=== PATIENT | male | born 1980 | race Caucasian/White ===

== ENCOUNTER 2016-11-28 15:34 | Emergency (ER) | payer OTHER | END 2016-11-28 16:41 | disposition home or self-care (01) | LOC: ER 15:34 | DX: E11.621 Type 2 diabetes mellitus with foot ulcer (principal); I10 Essential (primary) hypertension; M10.9 Gout, unspecified; Z79.4 Long term (current) use of insulin; M54.9 Dorsalgia, unspecified; G89.29 Other chronic pain; E66.9 Obesity, unspecified; G62.9 Polyneuropathy, unspecified; Z79.01 Long term (current) use of anticoagulants; Z79.899 Other long term (current) drug therapy; Z79.84 Long term (current) use of oral hypoglycemic drugs; Z91.040 Latex allergy status ==

== ENCOUNTER 2017-01-16 15:04 | Emergency (ER) | payer OTHER | END 2017-01-16 16:15 | disposition home or self-care (01) | LOC: ER 15:04 | DX: L02.612 Cutaneous abscess of left foot (principal); B95.62 Methicillin resistant Staphylococcus aureus infection as the cause of diseases classified elsewhere; E11.9 Type 2 diabetes mellitus without complications; I10 Essential (primary) hypertension; E78.5 Hyperlipidemia, unspecified; Z79.4 Long term (current) use of insulin; Z79.899 Other long term (current) drug therapy; Z91.040 Latex allergy status ==

== ENCOUNTER 2017-01-31 10:30 | Inpatient (IN) | payer OTHER ==
[~2017-01-31] VITALS: Ht 190.5 cm; Wt 149.7 kg
== END 2017-02-14 15:50 | disposition home or self-care (01) | DRG 540 ==
LOC: SWI 10:30
PROVIDERS: ADMIT Internal Medicine
PROC: 3E0234Z Introduction of Serum, Toxoid and Vaccine into Muscle, Percutaneous Approach (ICD-10-PCS; principal; 2017-02-14)
DX: M86.8X7 Other osteomyelitis, ankle and foot (principal); L03.116 Cellulitis of left lower limb; Z68.41 Body mass index [BMI] 40.0-44.9, adult; I10 Essential (primary) hypertension; Z89.432 Acquired absence of left foot; E66.01 Morbid (severe) obesity due to excess calories; F32.9 Major depressive disorder, single episode, unspecified; G89.29 Other chronic pain; M54.5 Low back pain; M10.9 Gout, unspecified; E11.40 Type 2 diabetes mellitus with diabetic neuropathy, unspecified; Z79.4 Long term (current) use of insulin; E78.5 Hyperlipidemia, unspecified; F41.9 Anxiety disorder, unspecified; Z79.899 Other long term (current) drug therapy; R19.7 Diarrhea, unspecified; B37.9 Candidiasis, unspecified; Z23 Encounter for immunization; B96.89 Other specified bacterial agents as the cause of diseases classified elsewhere
CPT/HCPCS: 87507; J2550

== ENCOUNTER 2017-05-23 13:48 | Inpatient (IN) | payer OTHER ==
[~2017-05-23] VITALS: Ht 190.5 cm; Wt 145.6 kg
--- NOTE | 2017-05-23 16:38 | NUR ---
1220 REPORT RECEIVED FROM FREDRICK TAPIA RN AT [facility] FOR PATIENT TO TRANSFER TO OUR FACILITY TODAY VIA [facility].
== END 2017-06-06 08:25 | disposition home health service (06) | DRG 540 ==
LOC: SWI 13:48
PROVIDERS: ADMIT Internal Medicine
DX: M86.8X7 Other osteomyelitis, ankle and foot (principal); Z68.41 Body mass index [BMI] 40.0-44.9, adult; E11.40 Type 2 diabetes mellitus with diabetic neuropathy, unspecified; I10 Essential (primary) hypertension; E78.5 Hyperlipidemia, unspecified; K21.9 Gastro-esophageal reflux disease without esophagitis; B95.62 Methicillin resistant Staphylococcus aureus infection as the cause of diseases classified elsewhere; B96.4 Proteus (mirabilis) (morganii) as the cause of diseases classified elsewhere; E66.01 Morbid (severe) obesity due to excess calories; G89.29 Other chronic pain; M54.5 Low back pain; M10.9 Gout, unspecified; F41.9 Anxiety disorder, unspecified; F32.9 Major depressive disorder, single episode, unspecified; Z89.432 Acquired absence of left foot; Z79.899 Other long term (current) drug therapy; Z79.4 Long term (current) use of insulin
CPT/HCPCS: 97161-GP; J1650